=== PATIENT | female | born 1940 | race Caucasian/White ===

== ENCOUNTER 2018-12-11 05:27 | Inpatient (IN) ==
[2018-11-28 10:46] LABS: Basophils % 0.3 % (0.0-0.8); Eosinophils # 0.1 10*3/uL (0.0-0.87); Eosinophils % 1.2 % (0.00-10.9); Hematocrit 38.8 VOL% (35.7-47.0); Hemoglobin 12.7 GM/DL (12.0-16.0); Immature Granulocytes % 0.4 %; Immature Granulocytes Absolute 0.03 #; Lymphocytes # 1.3 10*3/uL (1.4-4.0); Mean Corpuscular HGB Conc 32.7 GM/DL (32-36); Mean Corpuscular Volume 89.8 FL (87-102); Mean Platelet Volume 9.7 FL (9.6-12.0); Monocytes % 5.6 % (1.7-12.7); Neutrophils % 73.5 % (38.7-73.9); Platelet Count 269 T/CUMM (130-400); Red Blood Count 4.32 MC/CUMM (3.8-5.5); Red Cell Distribution Width 12.5 % (9.3-17.3); White Blood Count 6.8 T/CUMM (4-12)
[2018-11-28 10:56] LABS: Apearance,Urine CLEAR (Clear); Bilirubin,Urine Negative (Negative); Blood, Urine Negative (Negative); Glucose,Urine (UA) Negative (Negative); Ketones,Urine Negative (Negative); Nitrite,Urine Negative (Negative); Protein,Urine Negative; RBC,Urine <1 /HPF (0-4); Urine Color Colorless (Yellow); Urine Specific Gravity 1.005 (1.001-1.035); Urine Urobilinogen < 2.0 EU/DL (0.2-1.0); WBC,Urine <1 /HPF (0-6)
[2018-11-28 11:20] LABS: Calcium 8.8 MG/DL (8.5-10.1); Osmolality,Calculated 262.7 MOS/KG (273-304)
[2018-12-11] MEDS ORDERED: ALVIMOPAN 12 MG CAPSULE ONE (06:15)
[2018-12-11] MEDS ORDERED: cefTRIAXone 1,000 MG VIAL ONE (06:15)
[2018-12-11] MEDS ORDERED: DIAZEPAM 5 MG TABLET PO ONE (06:25)
[2018-12-11] MEDS ORDERED: FAMOTIDINE 20 MG TABLET PO ONE (06:26)
[2018-12-11] MEDS ORDERED: ALVIMOPAN 12 MG CAPSULE PO ONE (06:30)
[2018-12-11] MEDS ORDERED: cefTRIAXone 1,000 MG in SYRINGE 1 EACH IV ONE (06:30)
[2018-12-11] MEDS: LACTATED RINGERS 1,000 ML IV SCH ×2 (06:43→08:30)
[2018-12-11] MEDS ORDERED: FAMOTIDINE 20 MG TABLET ONE (06:53)
[2018-12-11] MEDS ORDERED: DIAZEPAM 5 MG TABLET ONE (06:53)
[2018-12-11] MEDS ORDERED: ONDANSETRON 4 MG/2 ML VIAL IV PRN ×2 (09:59→10:39)
[2018-12-11 10:22] LABS: Apearance,Urine CLEAR (Clear); Bilirubin,Urine Negative (Negative); Blood, Urine Negative (Negative); Glucose,Urine (UA) Negative (Negative); Ketones,Urine Negative (Negative); Mucus,Urine Occasional /LPF (Occasional); Nitrite,Urine Negative (Negative); Protein,Urine Negative; RBC,Urine <1 /HPF (0-4); Squamous Epithelial Cell,Urine Occasional /HPF (0-10); Urine Color Yellow (Yellow); Urine Specific Gravity 1.006 (1.001-1.035); Urine Urobilinogen < 2.0 EU/DL (0.2-1.0)
[2018-12-11] MEDS ORDERED: SEVOFLURANE 1 UNIT/15 MINUTE INH ONE (10:27)
[2018-12-11] MEDS ORDERED: PROPOFOL 200 MG/20 ML VIAL IV ONE (10:27)
[2018-12-11] MEDS ORDERED: ePHEDrine 50 MG/ML AMP ONE (10:28)
[2018-12-11] MEDS ORDERED: fentaNYL 100 MCG/2 ML VIAL ONE (10:28)
[2018-12-11] MEDS ORDERED: ONDANSETRON 4 MG/2 ML VIAL ONE (10:28)
[2018-12-11] MEDS ORDERED: DEXAMETHASONE 4 MG/1 ML VIAL ONE (10:28)
[2018-12-11] MEDS ORDERED: ACETAMINOPHEN 1,000 MG/100 ML VIAL IV ONE (10:29)
[2018-12-11] MEDS ORDERED: ROCURONIUM 100 MG/10 ML VIAL IV ONE (10:29)
[2018-12-11] MEDS ORDERED: PHENYLEPHRINE 1 MG/10 ML SYRINGE IV ONE (10:29)
[2018-12-11] MEDS ORDERED: LACTATED RINGERS 1,000 ML IV ONE (10:29)
[2018-12-11] MEDS ORDERED: DENOSUMAB 60 MG/ML SYRINGE SUBCUT SCH (10:30)
[2018-12-11] MEDS ORDERED: HYDROmorphone 2 MG/1 ML VIAL IV PRN (10:39)
[2018-12-11] MEDS: HYDROmorphone PCA 30 MG/30 ML SYRINGE IV SCH ×2 (11:04→11:47)
[2018-12-11] MEDS: SODIUM CHLORIDE 0.9% 1,000 ML IV SCH (11:47)
[2018-12-11] MEDS ORDERED: PHENOL 1.4% THROAT SPRAY 177 ML BOTTLE PO PRN (20:21)
[2018-12-11] MEDS: ALVIMOPAN 12 MG CAPSULE PO SCH (21:45)
[2018-12-11] MEDS: GABAPENTIN 100 MG CAPSULE PO SCH (21:45)
[2018-12-12] MEDS: SODIUM CHLORIDE 0.9% 1,000 ML IV SCH ×2 (03:10→15:33)
[2018-12-12 05:11] LABS: Basophils % 0.5 % (0.0-0.8); Eosinophils # 0.1 10*3/uL (0.0-0.87); Eosinophils % 0.8 % (0.00-10.9); Hematocrit 30.2 VOL% (35.7-47.0); Hemoglobin 9.7 GM/DL (12.0-16.0); Immature Granulocytes % 0.5 %; Immature Granulocytes Absolute 0.03 #; Lymphocytes # 1.1 10*3/uL (1.4-4.0); Lymphocytes % 17.3 % (21.3-54.2); Mean Corpuscular HGB Conc 32.1 GM/DL (32-36); Mean Corpuscular Volume 92.1 FL (87-102); Neutrophils % 69.9 % (38.7-73.9); Platelet Count 223 T/CUMM (130-400); Red Blood Count 3.28 MC/CUMM (3.8-5.5); Red Cell Distribution Width 13.2 % (9.3-17.3); White Blood Count 6.4 T/CUMM (4-12)
[2018-12-12] MEDS: LEVOTHYROXINE 125 MCG TABLET PO SCH (05:36)
[2018-12-12 05:45] LABS: Calcium 7.7 MG/DL (8.5-10.1); Osmolality,Calculated 269.1 MOS/KG (273-304)
[2018-12-12] MEDS: LOSARTAN 50 MG TABLET PO SCH (08:13)
[2018-12-12] MEDS: amLODIPine 5 MG TABLET PO SCH (08:13)
[2018-12-12] MEDS: GABAPENTIN 100 MG CAPSULE PO SCH ×2 (08:14→21:14)
[2018-12-12] MEDS: PANTOPRAZOLE 40 MG TABLET PO SCH (08:14)
[2018-12-12] MEDS: ALVIMOPAN 12 MG CAPSULE PO SCH ×2 (08:14→21:14)
[2018-12-12] MEDS: CALCIUM (CARBONATE)/VITAMIN D 600 MG-400 UNIT TABLET PO SCH (08:14)
[2018-12-12] MEDS: HYDROmorphone PCA 30 MG/30 ML SYRINGE IV SCH (09:17)
[2018-12-12] MEDS: oxyCODONE/ACETAMINOPHEN 5-325 MG TABLET PO PRN ×2 (17:04→21:21)
[2018-12-13] MEDS: SODIUM CHLORIDE 0.9% 1,000 ML IV SCH (04:31)
[2018-12-13] MEDS: LEVOTHYROXINE 125 MCG TABLET PO SCH (06:06)
[2018-12-13] MEDS: CALCIUM (CARBONATE)/VITAMIN D 600 MG-400 UNIT TABLET PO SCH (08:33)
[2018-12-13] MEDS: amLODIPine 5 MG TABLET PO SCH (08:33)
[2018-12-13] MEDS: GABAPENTIN 100 MG CAPSULE PO SCH (08:33)
[2018-12-13] MEDS: ALVIMOPAN 12 MG CAPSULE PO SCH (08:33)
[2018-12-13] MEDS: PANTOPRAZOLE 40 MG TABLET PO SCH (08:33)
[2018-12-13] MEDS: LOSARTAN 50 MG TABLET PO SCH (08:33)
[2018-12-13] MEDS: oxyCODONE/ACETAMINOPHEN 5-325 MG TABLET PO PRN (08:47)
[2018-12-13 10:00] VITALS: BP 152/70
== END 2018-12-13 10:40 | disposition home or self-care (01) | DRG 658 ==
LOC: N.OR 05:27 → N.SDSINP 05:27 → N.5E 11:46
PROVIDERS: ADMIT Urology; ATTEND Urology